=== PATIENT | female | born 1945 | race Caucasian/White ===

== ENCOUNTER 2016-09-23 11:43 | Emergency (ER) | payer BC, OTHER ==
[~2016-09-23] VITALS: Ht 162.6 cm; Wt 62.0 kg
[~2016-09-23 11:43] MED LIST: ATOR20TA42 PO; MAXA10TA2 PO
[2016-09-23 11:45] VITALS: BP 109/72; PULSE 77; RESP 18; TEMP 97.4; O2SAT 95
[2016-09-23] MEDS ORDERED: VENTAER INH (11:58)
[2016-09-23] MEDS ORDERED: MAXA5TAB2 (11:58)
--- NOTE | 2016-09-23 11:58 | PD ---
HPI Chief Complaint: Musculoskeletal Complaint Time Seen by Provider: 11:56 Travel History International Travel<30 days: No Contact w/Intl Traveler<30days: No Traveled to known affect area: No History of Present Illness HPI 71-year-old female presents emergency department for evaluation of right wrist injury after tripping and falling over her dog prior to arrival. Patient reports she fell onto an outstretched hand which was hyperextended upon impact the floor. She had immediate pain within the wrist. She is unable to flex or extend the wrist due to pain. She reports normal sensation in the hand and fingers. She denies numbness or tingling. She reports pain within the wrist, nonradiating, constant, worse with movement, no alleviating factors, severity 6 out of 10. She denies head injury or loss of consciousness. Patient is not anticoagulated. She denies no other injuries. PFSH Past Medical History Narrative Medical Significant for COPD, hyperlipidemia, migraines Respiratory: Yes (COPD) ?: Not Social History Tobacco Use: No Allergies-Medications (Allergen,Severity, Reaction): Coded Allergies: Tussionex (Verified Allergy, Severe, itching, 09/23/16) Codeine (Verified Allergy, Intermediate, ITCHING, 09/23/16) Reported Meds & Prescriptions Reported Meds & Active Scripts Active [place] (Hydrocodone-Acetaminophen) 5-325 mg Tab 1 Tab PO Q6H PRN Reported Ventolin Hfa 18 GM Inh (Albuterol Sulfate) 90 Mcg/Act Aer 1 Puff INH Q4H PRN Maxalt (Rizatriptan Benzoate) 5 Mg Tab Review of Systems Except as stated in HPI: all other systems reviewed are Neg General / Constitutional: No: Fever Eyes: No: Visual changes HENT: No: Headaches Cardiovascular: No: Chest Pain or Discomfort Respiratory: No: Shortness of Breath Gastrointestinal: No: Abdominal Pain Genitourinary: No: Dysuria Musculoskeletal: Positive: Pain (right wrist) Skin: No Rash Physical Exam Narrative GENERAL: Alert, well-appearing female. No acute distress. SKIN: Focused skin assessment warm/dry. HEAD: Atraumatic. Normocephalic. EYES: Pupils equal and round. No scleral icterus. No injection or drainage. EOMs intact ENT: No nasal bleeding or discharge. Mucous membranes pink and moist. NECK: Trachea midline. No JVD. No cervical midline tenderness. CARDIOVASCULAR: Regular rate and rhythm. No murmur appreciated. CHEST: No rib or chest wall tenderness RESPIRATORY: No accessory muscle use. Clear to auscultation. Breath sounds equal bilaterally. GASTROINTESTINAL: Abdomen soft, non-tender, nondistended. Hepatic and splenic margins not palpable. MUSCULOSKELETAL: No clubbing. No cyanosis. No edema. Right upper extremity: Notable swelling and point tenderness to the medial and lateral aspects of the wrist. 2+ radial pulse. Normal sensation within the hand and fingers. Patient unable to flex or extend the wrist. Patient has full range of motion of the fingers. NEUROLOGICAL: Awake and alert. No obvious cranial nerve deficits. Motor grossly within normal limits. Normal speech. PSYCHIATRIC: Appropriate mood and affect; insight and judgment normal. Data Data Last Documented VS Vital Signs Date Time Temp Pulse Resp B/P Pulse Ox O2 Delivery O2 Flow Rate FiO2 09/23/16 11:45 97.4 77 18 109/72 95 Orders Wrist, Complete ([id number]) (09/23/16 ) Splint Or Brace Apply/Monitor (09/23/16 13:09) MDM Medical Decision Making Medical Screen Exam Complete: Yes Emergency Medical Condition: Yes Differential Diagnosis Distal radius fracture, distal ulna fracture, wrist sprain, contusion Narrative Course 71-year-old female presents to emergency department with chief complaint of wrist pain after a mechanical fall prior to arrival. There is notable swelling to the right wrist and being held in slight flexion. Patient has normal sensation within the hand fingers and wrist. 2+ radial pulse. Brisk cap refill. X-ray pending X-ray right wrist: Comminuted distal radius fracture without angulation. No dislocation. Diagnostic findings discussed with patient and family. Reevaluation of the extremity again reveals strong radial pulse. Normal sensation within the hand wrist and fingers. Brisk cap refill Patient was placed in a sugar tong splint and sling. Instructed to ice and elevate the extremity. Oral narcotics for pain. Patient instructed to call tomorrow morning for follow-up with on-call orthopedic group. She agrees to plan. Diagnosis Primary Impression: Distal radius fracture, right Qualified Code: S52.501A - Closed fracture of distal end of right radius, unspecified fracture morphology, initial encounter Referrals: Anoop Clark MD Orthopedist Additional Instructions: Keep the splint in place until follow-up with orthopedic. Call tomorrow morning to schedule an appointment this week with orthopedic. Keep the extremity elevated with a sling. Take the pain medication as needed for pain. Return to the emergency department immediately if he developed severe increasing pain, numbness or tingling in the fingers. Change in coloration of the fingers. Scripts Oxycodone-Acetaminophen (Percocet)5-325 mg Tab1 Tab PO Q6H PRN (PAIN) #15 TAB Ref 0 Prov:Fawn Cuevas 09/23/16 Disposition: 01 DISCHARGE HOME Condition: Stable Fawn Cuevas Sep 23, 2016 11:57
--- NOTE | 2016-09-23 12:54 | RADRPT ---
EXAM DATE/TIME: 09/23/2016 12:44 [facility] COMPARISON: No previous studies available for comparison. INDICATIONS : Fell on right wrist MEDICAL HISTORY : Chronic obstructive pulmonary disease. SURGICAL HISTORY : None. ENCOUNTER: Initial ACUITY: 1 day PAIN SCORE: 9/10 LOCATION: Right wrist FINDINGS: There is a comminuted fracture of the distal radial metaphysis which is believed to extend to the art icular surface. No significant angulation. CONCLUSION: Distal radius fracture with probable intra-articular extension. Grey Montes MD on September 23, 2016 at 12:52 Board Certified Radiologist. This report was verified electronically.
[2016-09-23] MEDS ORDERED: NORC5TAB PO (13:15)
[2016-09-23] MEDS ORDERED: PERC5TAB12 PO (13:20)
[2016-09-23] MEDS ORDERED: oxyCODONE/ACETAMINOPHEN 5 MG/325 MG TAB PO ONE (13:30)
== END 2016-09-23 13:57 | disposition home or self-care (01) ==
LOC: PHEFT 11:43
DX: S52.501A Unspecified fracture of the lower end of right radius, initial encounter for closed fracture (principal); E78.5 Hyperlipidemia, unspecified; Z87.09 Personal history of other diseases of the respiratory system; Z86.69 Personal history of other diseases of the nervous system and sense organs; W01.0XXA Fall on same level from slipping, tripping and stumbling without subsequent striking against object, initial encounter
CPT/HCPCS: 29125; 73110

== ENCOUNTER 2016-09-28 11:23 | Emergency (ER) | payer OTHER ==
[~2016-09-28] VITALS: Ht 162.6 cm; Wt 63.0 kg
[~2016-09-28 11:23] MED LIST changes: -ATOR20TA42 PO; -MAXA10TA2 PO; +MAXA5TAB2; +PERC5TAB12 PO; +VENTAER INH
[2016-09-28 11:29] VITALS: BP 136/100; PULSE 108; RESP 15; TEMP 98.3; O2SAT 95
--- NOTE | 2016-09-28 12:12 | PD ---
HPI Chief Complaint: Injury Time Seen by Provider: 11:45 Travel History International Travel<30 days: No Contact w/Intl Traveler<30days: No Traveled to known affect area: No History of Present Illness HPI 71-year-old female presents to the emergency room for reevaluation of right wrist fracture she sustained 5 days ago. Patient came to the emergency room and was placed in I Sugar tong splint. States an hour after being discharged she felt numbness and tingling in the median distribution of her right hand. She reports decreased light and sharp sensation. She called the emergency room and they recommended she loosen the splint. Patient states this did not change her symptoms. She called the orthopedic surgeon 2 days later for an appointment and told them the same and they recommended she elevate and continue ibuprofen. Patient states she has been elevating, icing, and taking ibuprofen but her symptoms are persistent. She woke up today and was concerned so she came to the emergency room for evaluation. Patient denies significant pain. PFSH Past Medical History High Cholesterol: Yes COPD: Yes Respiratory: Yes (COPD) Migraines: Yes Influenza Vaccination: Yes Past Surgical History Other Surgery: Yes (SINUS) Social History Alcohol Use: No Tobacco Use: Yes (1 PPD) Substance Use: No Allergies-Medications (Allergen,Severity, Reaction): Coded Allergies: Tussionex (Verified Allergy, Severe, itching, 09/28/16) Codeine (Verified Allergy, Intermediate, ITCHING, 09/28/16) Reported Meds & Prescriptions Reported Meds & Active Scripts Active Percocet (Oxycodone-Acetaminophen) 5-325 mg Tab 1 Tab PO Q6H PRN Reported Ventolin Hfa 18 GM Inh (Albuterol Sulfate) 90 Mcg/Act Aer 1 Puff INH Q4H PRN Maxalt (Rizatriptan Benzoate) 5 Mg Tab Review of Systems Except as stated in HPI: all other systems reviewed are Neg Physical Exam Narrative GENERAL: Well-nourished, well-developed female in no acute distress. Afebrile. Ambulatory. SKIN: Focused skin assessment warm/dry. Extreme ecchymosis of the right forearm especially of the ulnar side. HEAD: Normocephalic. EYES: No scleral icterus. No injection or drainage. NECK: Supple, trachea midline. No JVD or lymphadenopathy. CARDIOVASCULAR: Regular rate and rhythm without murmurs, gallops, or rubs. RESPIRATORY: Breath sounds equal bilaterally. No accessory muscle use. MUSCULOSKELETAL: No cyanosis. Moderate edema over the right distal wrist. 2+ radial pulse. Decreased sharp and dull sensation in the median distribution. Normal sensation of the radial and ulnar distribution. Radial, ulnar, and median motor aspect intact. Distal capillary refill less than 2 seconds. Data Data Last Documented VS Vital Signs Date Time Temp Pulse Resp B/P Pulse Ox O2 Delivery O2 Flow Rate FiO2 09/28/16 11:29 98.3 108 15 136/100 95 Orders Splint Or Brace Apply/Monitor (09/28/16 12:03) MDM Medical Decision Making Medical Screen Exam Complete: Yes Emergency Medical Condition: Yes Medical Record Reviewed: Yes Differential Diagnosis Neuropathy, median nerve compression, fracture, contusion, edema Narrative Course 71-year-old female presents to the emergency room for evaluation of right hand peripheral neuropathy in the median distribution after getting a distal radial fracture 5 days ago. He states since Saturday she has experienced decreased sensation and numbness and tingling to her second third and half of her fourth finger. She called her orthopedic surgeon's office and they recommend that she elevate it. She has a follow-up appointment with her orthopedic surgeon in 3 days. States when elevation did not work, she became concerned. Splint was removed in the emergency room for evaluation of the distal right wrist. Physical exam reveals decreased sharp and dull sensation in the median distribution. Patient has intact motor component of the median, ulnar, and radial nerves. There is 2+ radial pulse and less than 2 second capillary refill distally. I spoke to my attending physician, Dr. Neff, who recommends loosening the splint and having patient follow up. There is moderate to severe edema of the right distal radius which is likely the cause of her neuropathy. Patient was reassured and a loose sugar tong splint was reapplied. Patient was told to keep her appointment as planned and return to the emergency room for worsening symptoms. She understands and agrees to plan. Diagnosis Primary Impression: Right median nerve neuropathy Additional Impression: Distal radius fracture, right Qualified Code: S52.501S - Closed fracture of distal end of right radius, unspecified fracture morphology, sequela Referrals: Anoop Clark MD Patient Instructions: General Instructions, Peripheral Neuropathy (ED) Additional Instructions: Rest and drink plenty of fluids. Keep splint on until follow-up. Take ibuprofen with food as directed, as needed for pain. Elevate above the heart and apply ice to the affected area for 20 minutes at a time, as needed for pain and swelling. Follow-up with Dr. Clark as planned. Return to the emergency room for worsening symptoms. Disposition: 01 DISCHARGE HOME Condition: Stable Gaby Perales Sep 28, 2016 12:12
== END 2016-09-28 12:40 | disposition home or self-care (01) ==
LOC: PHEFT 11:23
DX: G56.11 Other lesions of median nerve, right upper limb (principal); S52.501D Unspecified fracture of the lower end of right radius, subsequent encounter for closed fracture with routine healing; E78.00 Pure hypercholesterolemia, unspecified; J44.9 Chronic obstructive pulmonary disease, unspecified; F17.210 Nicotine dependence, cigarettes, uncomplicated; W01.0XXD Fall on same level from slipping, tripping and stumbling without subsequent striking against object, subsequent encounter
CPT/HCPCS: 99281

== ENCOUNTER 2016-11-22 09:59 | Emergency (ER) | payer OTHER ==
[2016-11-22 10:20] VITALS: BP 154/73; PULSE 103; RESP 18; TEMP 97.3; O2SAT 97
[2016-11-22] MEDS ORDERED: ZOLO25TA PO (10:26)
[2016-11-22] MEDS ORDERED: BUSP15TA PO (10:26)
--- NOTE | 2016-11-22 10:29 | PD ---
HPI Chief Complaint: Chest Pain Time Seen by Provider: 10:24 Travel History International Travel<30 days: No Contact w/Intl Traveler<30days: No Traveled to known affect area: No History of Present Illness HPI This is a 71-year-old female who presents to the emergency department with a recent diagnosis of anxiety ever since she had a cast put on her wrist 6 weeks ago. She comes in today with increasing anxiety feeling like it comes in waves , severe, ever since yesterday associated with intermittent pressure-like feeling in her chest sometimes under her left breast and sometimes under her right, nonradiating associated with some nausea. She says she is always short of breath she has COPD. She smokes but denies any diabetes, hypertension or hyperlipidemia. She's never had a stress test. Her doctor recently put her on Zoloft and BuSpar and she's been taking lorazepam at night time but she doesn't think these things are helping. PFSH Past Medical History Anxiety: Yes High Cholesterol: Yes COPD: Yes Respiratory: Yes (COPD) Migraines: Yes ?: Not Past Surgical History Other Surgery: Yes (SINUS) Social History Alcohol Use: No Tobacco Use: Yes (1 PPD) Substance Use: No Allergies-Medications (Allergen,Severity, Reaction): Coded Allergies: chlorpheniramine (Unverified Allergy, Severe, itching, 11/06/16) hydrocodone (Unverified Allergy, Severe, itching, 11/06/16) codeine (Unverified Allergy, Intermediate, ITCHING, 11/06/16) Reported Meds & Prescriptions Reported Meds & Active Scripts Active Reported Buspirone (Buspirone HCl) 15 Mg Tab 15 Mg PO BID PRN Zoloft (Sertraline HCl) 25 Mg Tab 25 Mg PO DAILY Ventolin Hfa 18 GM Inh (Albuterol Sulfate) 90 Mcg/Act Aer 1 Puff INH Q4H PRN Review of Systems Except as stated in HPI: all other systems reviewed are Neg Physical Exam Narrative GENERAL: Anxious appearing, shaky SKIN: Focused skin assessment warm and dry. HEAD: Atraumatic. Normocephalic. EYES: Pupils equal and round. No injection or drainage. ENT: Moist mucous membranes NECK: Trachea midline. CARDIOVASCULAR: Regular rate and rhythm. No murmur appreciated. RESPIRATORY: Clear to auscultation. Breath sounds equal bilaterally. GASTROINTESTINAL: Abdomen soft, non-tender, nondistended. MUSCULOSKELETAL: No obvious deformities. NEUROLOGICAL: Awake and alert. No obvious cranial nerve deficits. Moving all extremities. PSYCHIATRIC: Anxious, pressured speech Data Data Last Documented VS Vital Signs Date Time Temp Pulse Resp B/P (MAP) Pulse Ox O2 Delivery O2 Flow Rate FiO2 11/22/16 11:15 89 16 111/71 (84) 92 Room Air 11/22/16 10:20 97.3 Orders Orders Electrocardiogram (11/22/16 10:24) Complete Blood Count With Diff (11/22/16 10:24) Comprehensive Metabolic Panel (11/22/16 10:24) Magnesium (Mg) (11/22/16 10:24) Troponin I (11/22/16 10:24) Chest, Single Ap (11/22/16 10:24) Ecg Monitoring (11/22/16 10:24) Bilateral Bp Monitoring (11/22/16 10:24) Iv Access Insert/Monitor (11/22/16 10:24) Oximetry (11/22/16 10:24) Oxygen Administration (11/22/16 10:24) Aspirin Chew (Aspirin Chew) (11/22/16 10:30) Sodium Chloride 0.9% Flush (Ns Flush) (11/22/16 10:30) Thyroid Stimulating Hormone (11/22/16 10:24) Lorazepam Inj (Ativan Inj) (11/22/16 10:30) Labs Laboratory Tests Test 11/22/16 10:40 White Blood Count 8.2 TH/MM3 Red Blood Count 5.15 MIL/MM3 Hemoglobin 16.4 GM/DL Hematocrit 49.0 % Mean Corpuscular Volume 95.0 FL Mean Corpuscular Hemoglobin 31.9 PG Mean Corpuscular Hemoglobin Concent 33.6 % Red Cell Distribution Width 13.8 % Platelet Count 240 TH/MM3 Mean Platelet Volume 8.8 FL Neutrophils (%) (Auto) 64.0 % Lymphocytes (%) (Auto) 23.9 % Monocytes (%) (Auto) 8.7 % Eosinophils (%) (Auto) 0.2 % Basophils (%) (Auto) 3.2 % Neutrophils # (Auto) 5.2 TH/MM3 Lymphocytes # (Auto) 2.0 TH/MM3 Monocytes # (Auto) 0.7 TH/MM3 Eosinophils # (Auto) 0.0 TH/MM3 Basophils # (Auto) 0.3 TH/MM3 CBC Comment DIFF FINAL Differential Comment Blood Urea Nitrogen 7 MG/DL Creatinine 0.74 MG/DL Random Glucose 143 MG/DL Total Protein 6.9 GM/DL Albumin 3.8 GM/DL Calcium Level 8.8 MG/DL Magnesium Level 2.0 MG/DL Alkaline Phosphatase 75 U/L Aspartate Amino Transf (AST/SGOT) 14 U/L Alanine Aminotransferase (ALT/SGPT) 15 U/L Total Bilirubin 0.5 MG/DL Sodium Level 138 MEQ/L Potassium Level 3.6 MEQ/L Chloride Level 102 MEQ/L Carbon Dioxide Level 24.9 MEQ/L Anion Gap 11 MEQ/L Estimat Glomerular Filtration Rate 78 ML/MIN Troponin I LESS THAN 0.02 NG/ML Thyroid Stimulating Hormone 3rd Gen 1.300 uIU/ML MDM Medical Decision Making Medical Screen Exam Complete: Yes Emergency Medical Condition: Yes Interpretation(s) Afebrile, tachycardic, hypertensive No leukocytosis Some hemoconcentration Electrolytes are reassuring Troponin is normal TSH is 1.3 Chest x-rays reassuring Differential Diagnosis Acute coronary syndrome, panic attack, electrolyte abnormality, hyperthyroidism Narrative Course This is a 71-year-old female who presents to the emergency department with anxiety and some chest discomfort. On exam she appears very anxious, hyperventilating, shaky and she appears to be having a panic attack. She was placed on a monitor and an IV was established. EKG was nonischemic. Labs are obtained which are reassuring. TSH is normal. Troponin is negative. Patient feels much better after a dose of Ativan. We had along conversation regarding the patient's risk for coronary artery disease and acute coronary syndrome. I explained to her that one troponin doesn't rule out the possibility of acute coronary syndrome. She really wants to go home. She has an appointment with her primary care physician tomorrow. I asked her to return to the emergency department if she gets worse, and she agrees to follow up with her primary care doctor tomorrow and discuss stress testing. Diagnosis Primary Impression: Panic attack Patient Instructions: General Instructions Additional Instructions: If you develop severe chest pain, shortness of breath, sweating, lightheadedness , dizziness or difficulty breathing return to the emergency department immediately. Follow-up with your primary care physician tomorrow without fail. Discussed with her the possibility of having a stress test done to rule out heart disease. Also discussed the possibility of some sort of breakthrough anxiety medication for when you have panic attacks. Med/Other Pt SpecificInfo: No Change to Meds Disposition: 01 DISCHARGE HOME Condition: Stable Tanya Casillas MD Nov 22, 2016 10:29
[2016-11-22] MEDS ORDERED: ASPIRIN 81 MG CHEW TAB PO ONE (10:30)
[2016-11-22] MEDS ORDERED: LORazepam 2 MG/ML VIAL IV PUSH ONE (10:30)
[2016-11-22] MEDS ORDERED: SODIUM CHLORIDE 0.9% FLUSH 10 ML FLUSH IVF PRN (10:30)
[2016-11-22 10:37] VITALS: BP 140/88; PULSE 99; RESP 18; O2SAT 95
[2016-11-22 10:44] LABS: AUTOMATED NEUTROPHIL # 5.2 TH/MM3 (1.8-7.7); BASOPHIL # 0.3 TH/MM3 (0-0.2); BASOPHIL % 3.2 % (0.0-2.0); EOSINOPHIL % 0.2 % (0.0-4.0); HEMO FLAGS DIFF FINAL; LYMPH % 23.9 % (9.0-44.0); MEAN CORPUSCULAR HEMOGLOBIN 31.9 PG (27.0-34.0); MEAN CORPUSCULAR HGB CONC 33.6 % (32.0-36.0); MONO % 8.7 % (0.0-8.0); PLATELET COUNT 240 TH/MM3 (150-450); RED BLOOD COUNT 5.15 MIL/MM3 (4.00-5.30); RED CELL DISTRIBUTION WIDTH 13.8 % (11.6-17.2); WHITE BLOOD COUNT 8.2 TH/MM3 (4.0-11.0)
[2016-11-22 10:54] LABS: CHLORIDE 102 MEQ/L (98-107); POTASSIUM 3.6 MEQ/L (3.5-5.1); SODIUM (NA) 138 MEQ/L (136-145)
--- NOTE | 2016-11-22 10:55 | RADRPT ---
EXAM DATE/TIME: 11/22/2016 10:33 [facility] COMPARISON: No previous studies available for comparison. INDICATIONS : Chest pain & shortness of breath,. MEDICAL HISTORY : Hypercholesterolemia. Chronic obstructive pulmonary disease. SURGICAL HISTORY : Right arm. Sinuses. ENCOUNTER: Initial ACUITY: 2 weeks PAIN SCORE: 7/10 LOCATION: chest FINDINGS: A single view of the chest demonstrates the lungs to be symmetrically aerated without evidence of mas s, infiltrate or effusion. The cardiomediastinal contours are unremarkable. Osseous structures are intact. There are multiple overlying electrocardiogram leads. There is mild scoliosis. CONCLUSION: No acute disease. Matt Bajwa MD on November 22, 2016 at 10:52 Board Certified Radiologist. This report was verified electronically.
[2016-11-22 10:58] LABS: ANION GAP 11 MEQ/L (5-15); BICARBONATE 24.9 MEQ/L (21.0-32.0); BLOOD UREA NITROGEN 7 MG/DL (7-18)
[2016-11-22 11:01] LABS: ALT (GPT) 15 U/L (10-53); AST (GOT) 14 U/L (15-37); GLOMERULAR FILTRATION RATE 78 ML/MIN (>89)
[2016-11-22 11:03] LABS: TOTAL BILIRUBIN ADULT 0.5 MG/DL (0.2-1.0)
[2016-11-22 11:04] LABS: ALKALINE PHOSPHATASE 75 U/L (45-117)
[2016-11-22 11:15] VITALS: BP 111/71; PULSE 89; RESP 16; O2SAT 92
--- NOTE | 2016-11-24 01:24 | EKG ---
Date Performed: 11/22/2016 Time Performed: 10:05:26 PTAGE: 71 years EKG: SINUS TACHYCARDIA POSSIBLE LEFT ATRIAL ENLARGEMENT ABNORMAL RHYTHM ECG PREVIOUS TRACING : 09/16/2007 09.30 Compared to the previous tracing, rate has increased with lynn wilkerson for left atrial enlargement DOCTOR: Abelardo Mclean Interpretating Date/Time 11/24/2016 01:24:02
== END 2016-11-22 11:50 | disposition home or self-care (01) ==
LOC: PHED 09:59
DX: F41.0 Panic disorder [episodic paroxysmal anxiety] (principal); J44.9 Chronic obstructive pulmonary disease, unspecified; E78.00 Pure hypercholesterolemia, unspecified
CPT/HCPCS: 71010; 80053; 83735; 84443; 84484; 85025; 93005; 96374; 99285; J2060